=== PATIENT | female | born 1965 | race African-American/Black ===

== ENCOUNTER 2020-05-31 12:42 | Inpatient (IN) | payer MEDICAID ==
[~2020-05-31] VITALS: Ht 162.6 cm; Wt 67.4 kg
[2020-05-31] MEDS ORDERED: SODIUM CHLORIDE 0.9% 1,000 ML IV ONE (13:15)
[2020-05-31 13:24] LABS: HEMATOCRIT. 29.6 % (36.0-48.0); HEMOGLOBIN. 8.7 g/dL (12.0-16.0); MEAN CORPUSCULAR HEMOGLOBIN 19.8 pg (28.0-32.0); MEAN CORPUSCULAR VOLUME 67.1 fL (81.0-99.0); MEAN PLATELET VOLUME 7.2 fl (7.4-10.4); PLATELET 259 x1000/uL (130-400); RED BLOOD CELL COUNT 4.42 mill/uL (4.2-5.4); RED CELL DISTRIBUTION WIDTH 17.4 % (11.6-14.6)
[2020-05-31 13:29] LABS: CHLORIDE 109 mEq/L (98-107)
[2020-05-31 13:31] LABS: PROTHROMBIN TIME 10.3 sec (9.6-11.0)
[2020-05-31 13:47] LABS: PLATELET ESTIMATE NORMAL
[2020-05-31 14:30] LABS: CLARITY URINE CLEAR (CLEAR); COLOR URINE YELLOW (YELLOW); KETONES URINE NEGATIVE (NEGATIVE); LEUKOCYTE ESTERASE URINE 1+ (NEGATIVE); NITRITE URINE NEGATIVE (NEGATIVE); OCCULT BLOOD URINE NEGATIVE (NEGATIVE); PH URINE 6.5 (4.5-8.0); PROTEIN URINE NEGATIVE (NEGATIVE); SPECIFIC GRAVITY URINE 1.025 (1.005-1.030)
[2020-05-31] MEDS ORDERED: AMLODIPINE 5MG TABLET PO ONE (15:45)
[2020-05-31] MEDS ORDERED: ASPIRIN 325MG EC TABLET PO ONE (17:00)
[2020-05-31] MEDS ORDERED: HYDRALAZINE 20MG/ML VIAL IV PRN (19:13)
[2020-05-31] MEDS ORDERED: DIPHENHYDRAMINE 50MG/ML VIAL IV PRN (20:45)
[2020-05-31] MEDS ORDERED: CEFTRIAXONE 1 G PREMIX 50 ML IV SCH (20:45)
[2020-05-31] MEDS ORDERED: ONDANSETRON HCL 4MG/2ML INJ IV PRN (20:45)
[2020-05-31] MEDS ORDERED: ACETAMINOPHEN 325MG TABLET PO PRN (20:45)
[2020-05-31] MEDS ORDERED: ENOXAPARIN 40MG/0.4ML SYR SUBCUT SCH (20:45)
[2020-05-31] MEDS ORDERED: CLONIDINE 0.1MG TABLET PO PRN (20:45)
[2020-05-31] MEDS ORDERED: IPRATROPIUM/ALBUTEROL 0.5-3(2.5)MG/3ML NEB HHN PRN (20:45)
[2020-06-01 06:28] LABS: BASOPHILS % 0.8 % (0.0-2.0); EOSINOPHILS % 4.7 % (0.0-5.0); HEMATOCRIT. 27.4 % (36.0-48.0); HEMOGLOBIN. 8.2 g/dL (12.0-16.0); LYMPHOCYTES % 43.4 % (20.0-50.0); MEAN CORPUSCULAR VOLUME 66.8 fL (81.0-99.0); MEAN PLATELET VOLUME 7.5 fl (7.4-10.4); MONOCYTES % 7.7 % (2.0-8.0); NEUTROPHILS % 43.4 % (40.0-76.0); PLATELET 236 x1000/uL (130-400); RED CELL DISTRIBUTION WIDTH 17.4 % (11.6-14.6)
[2020-06-01 06:40] LABS: CHLORIDE 107 mEq/L (98-107)
[2020-06-01 06:54] LABS: LDL CHOLESTEROL 65 mg/dL (5-100)
[2020-06-01 06:56] LABS: HDL CHOLESTEROL 60 mg/dL (40-59)
[2020-06-01 10:00] VITALS: BP 150/79
[2020-06-01] MEDS ORDERED: CEFTRIAXONE 1,000 MG in DEXTROSE 5% WATER 50 ML IV SCH (13:00)
== END 2020-06-01 10:31 | disposition left against medical advice (07) | DRG 45 ==
LOC: ER 12:42 → MICUSO 16:51 → EDBEDREQ 16:57 → 5WST 06-01 10:23
PROVIDERS: ADMIT Internal Medicine; ATTEND Internal Medicine
DX: I63.9 Cerebral infarction, unspecified (principal); G81.91 Hemiplegia, unspecified affecting right dominant side; I10 Essential (primary) hypertension; Z90.710 Acquired absence of both cervix and uterus; E87.8 Other disorders of electrolyte and fluid balance, not elsewhere classified; N39.0 Urinary tract infection, site not specified
CPT/HCPCS: 36415; 71045; 80053; 80061; 81003; 82962; 84443; 84484; 85025; 99291; J0360; J0696; J1650; J7030; J7060